=== PATIENT | male | born 1950 | race Two or more races ===

== ENCOUNTER 2016-12-20 07:30 | Emergency (ER) | payer OTHER ==
[~2016-12-20] VITALS: Ht 170.2 cm; Wt 79.4 kg
[2016-12-20] MEDS ORDERED: CLOP75TA41 PO (10:07)
[2016-12-20] MEDS ORDERED: ENA10T PO (10:07)
[2016-12-20] MEDS ORDERED: FLUT50SP13 (10:07)
[2016-12-20] MEDS ORDERED: HYDR25TA4 PO (10:07)
[2016-12-20] MEDS ORDERED: FINA5TAB4 PO (10:07)
[2016-12-20] MEDS ORDERED: ATOR10TA PO (10:07)
[2016-12-20] MEDS ORDERED: METF-316 PO (10:07)
[2016-12-20] MEDS ORDERED: MECLIZINE HCL 25 MG TAB PO ONE (10:30)
[2016-12-20 11:03] VITALS: BP 141/77
== END 2016-12-20 11:25 | disposition home or self-care (01) ==
LOC: ER 07:30
DX: R42 Dizziness and giddiness (principal); R51 Headache; I25.10 Atherosclerotic heart disease of native coronary artery without angina pectoris; E11.9 Type 2 diabetes mellitus without complications; I10 Essential (primary) hypertension; Z79.899 Other long term (current) drug therapy; Z98.61 Coronary angioplasty status
CPT/HCPCS: 70450; 82962; 93005; 94761; 99284; J8597